=== PATIENT | male | born 1955 | race Two or more races ===

== ENCOUNTER 2019-01-23 08:45 | Emergency (ER) | payer OTHER ==
[~2019-01-23] VITALS: Ht 175.3 cm; Wt 102.1 kg
[~2019-01-23 08:45] MED LIST: ASA325 M1 PO; DICLOFENAC SODI75 MG PO; FLEXERIL10 MG PO
[2019-01-23] MEDS ORDERED: XARELTO15 MG PO (16:26)
[2019-01-23] MEDS ORDERED: ULTRACET PO (16:26)
[2019-01-23] MEDS ORDERED: XARELTO20 MG PO (16:27)
== END 2019-01-23 16:39 | disposition home or self-care (01) ==
LOC: ER 08:45
DX: I82.402 Acute embolism and thrombosis of unspecified deep veins of left lower extremity (principal); M79.605 Pain in left leg

== ENCOUNTER → 2019-04-17 | Outpatient (CLI) | payer OTHER ==
[~2019-04-17] MED LIST changes: +ULTRACET PO; +XARELTO15 MG PO; +XARELTO20 MG PO
== END | disposition home or self-care (01) ==
LOC: MRI 08:48
DX: M75.80 Other shoulder lesions, unspecified shoulder (principal); S09.93XA Unspecified injury of face, initial encounter; M75.100 Unspecified rotator cuff tear or rupture of unspecified shoulder, not specified as traumatic
CPT/HCPCS: 73221

== ENCOUNTER 2019-05-09 07:52 | Outpatient (CLI) | payer OTHER | END 2019-05-09 07:53 | disposition home or self-care (01) | LOC: RAD 07:52 | DX: M25.512 Pain in left shoulder (principal) ==

== ENCOUNTER 2020-07-27 09:20 | Outpatient (CLI) | payer OTHER | END 2020-07-27 09:32 | disposition home or self-care (01) | LOC: RAD 09:20 | PROVIDERS: ATTEND Personal Emergency Response Attendant | DX: R05 Cough (principal) ==

== ENCOUNTER 2020-10-30 07:55 | Outpatient (CLI) | payer OTHER | END 2020-10-30 07:59 | disposition home or self-care (01) | LOC: NUCLEAR 07:55 | PROVIDERS: ATTEND General Practice | DX: I70.213 Atherosclerosis of native arteries of extremities with intermittent claudication, bilateral legs (principal); I87.2 Venous insufficiency (chronic) (peripheral) ==

== ENCOUNTER 2020-11-02 10:28 | Outpatient (CLI) | payer OTHER | END 2020-11-02 10:39 | disposition home or self-care (01) | LOC: NUCLEAR 10:28 | DX: I70.213 Atherosclerosis of native arteries of extremities with intermittent claudication, bilateral legs (principal); I87.2 Venous insufficiency (chronic) (peripheral) ==

== ENCOUNTER 2021-07-01 18:15 | Emergency (ER) | payer OTHER ==
[~2021-07-01] VITALS: Ht 177.8 cm; Wt 102.5 kg
[2021-07-01] MEDS ORDERED: ECOTRIN325 M1 PO (18:53)
[2021-07-01] MEDS ORDERED: DIOVAN160 M1 PO (18:53)
== END 2021-07-01 21:28 | disposition home or self-care (01) ==
LOC: ER 18:15
DX: R10.13 Epigastric pain (principal)